=== PATIENT | female | born 1965 | race Caucasian/White ===

== ENCOUNTER 2025-04-30 16:00 | Outpatient (CLI) | payer BC, SELFPAY | END 2025-04-30 16:01 | disposition home or self-care (01) | PROVIDERS: PCP Family Medicine; Visit Provider Family Medicine | DX: F41.8 Other specified anxiety disorders (principal); M85.80 Other specified disorders of bone density and structure, unspecified site; R53.83 Other fatigue; Z13.6 Encounter for screening for cardiovascular disorders | CPT/HCPCS: 80053; 80061; 82306; 84443 ==